=== PATIENT | male | born 1960 | race Hispanic/Latino ===

== ENCOUNTER → 2022-10-09 | Outpatient (CLI) | payer OTHER | END | disposition home or self-care (01) | LOC: RAH 14:15 | PROVIDERS: ATTEND Physician Assistant | DX: J32.9 Chronic sinusitis, unspecified (principal); G44.311 Acute post-traumatic headache, intractable; G31.9 Degenerative disease of nervous system, unspecified; G44.319 Acute post-traumatic headache, not intractable | CPT/HCPCS: 70551 ==